=== PATIENT | female | born 1980 | race Caucasian/White ===

== ENCOUNTER 2016-09-07 09:00 | Emergency (ER) | payer OTHER ==
[2016-09-07] MEDS ORDERED: ONDANSETRON 4MG/2ML VIAL (J2405) As Ordered ONE (09:39)
[2016-09-07] MEDS ORDERED: hydrOXYzine 25 MG TAB As Ordered ONE (09:39)
[2016-09-07] MEDS ORDERED: methylPREDNISolone INJ 125 MG/2 ML VIAL (J2930) As Ordered ONE (09:39)
--- NOTE | 2016-09-07 12:47 | EDDOCDS ---
Physician Documentation [facility] Name: Kierra Belle Age: 36 yrs Sex: Female : 1980 Arrival Date: 09/07/2016 Time: 09:00 Bed 14 Private MD: Edy John [facility] Disposition: 09/07/16 12:36 Discharged to Home/Self Care. Impression: Allergic urticaria. - Condition is Stable. - Discharge Instructions: Allergies. - Prescriptions for Prednisone 20 mg Oral Tablet - take 3 tablet by ORAL route once daily for 5 days; 15 tablet. - Medication Reconciliation, Local Pharmacy Hours form. - Follow up: Edy John [facility]; When: Call to arrange an appointment; Reason: Continuance of care. - Problem is new. - Symptoms have improved. Historical: - Allergies: Benadryl; SHELLFISH; [place]; Ibuprofen; Peanuts; Latex; - Home Meds: 1. cyproheptadine 4 mg Oral tab daily 2. Depo-Provera 150 mg/mL IM syrg 1 mL every 3 mo - PMHx: Allergies, Seasonal; - PSHx: Partial thyroidectomy; Right ankle surgery; - Family history: Not pertinent. - Social history: Smoking status: Patient states was never smoker of tobacco. No barriers to communication noted, The patient speaks fluent Sinhala, Speaks appropriately for age. - : The pt / caregiver states he / she is not on anticoagulants. Home medication list is obtained from the patient. - Exposure Risk Screening:: None identified. 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 (165.10 cm); Pain 0/10; 10:53 BP 117 / 67 (auto/); kc3 10:54 Pulse 84 MON; Pulse Ox 98% ; kc3 12:45 BP 109 / 56; Pulse 98; Resp 18; Temp 98.8(O); Pulse Ox 97% on R/A; Pain 0/10; kc3 09:13 Body Mass Index 26.13 (71.21 kg, 165.10 cm) dem1 MDM: 09:09 Solu-MEDROL 125 mg IVP once ordered. fg 09:09 Ondansetron 4 mg IVP once ordered. fg 09:09 hydrOXYzine 25 mg PO once ordered. fg 09:53 Financial registration complete. lg 10:52 [facility] Payment Agreement was scanned into [employer] and attached to record. lg Administered Medications: 09:55 Drug: Solu-MEDROL 125 mg [Solu-Medrol 500 mg intravenous solution (125 mg)] Route: IVP; kc3 Site: right antecubital; :55 Drug: Ondansetron 4 mg [ondansetron HCl 2 mg/mL intravenous solution (2 mL)] Route: kc3 IVP; Site: right antecubital; :55 Drug: hydrOXYzine 25 mg [hydroxyzine HCl 25 mg tablet (1 tabs)] Route: PO; kc3 Signatures: Neha Chew Reg Reg lg Gill, Frances, MD MD Alicia Mckeon RN RN kc3 The chart was reviewed and I authenticate all verbal orders and agree with the evaluation and treatment provided.Attachments: 10:52 [facility] Payment Agreement lg MTDD
--- NOTE | 2016-09-07 12:47 | EDDOCDS ---
Nurse's Notes [facility] Name: Kierra Belle Age: 36 yrs Sex: Female : 1980 Arrival Date: 09/07/2016 Time: 09:00 Bed 14 Private MD: Edy John [facility] Diagnosis: Allergic urticaria Presentation: 09/07 09:08 Presenting complaint: EMS states: allergic reaction with hives to left arm and minor kc3 facial swelling with lip swelling. 09:16 Onset: The symptoms/episode began/occurred suddenly. The patient has a history of a kc3 previous allergic reaction. The previous reaction involved swelling. Anaphylaxis evaluation, the patient reports or I have noted the following symptoms which indicate a significant risk of anaphylaxis: no signs or symptoms of anaphylaxis were noted. Adult Sepsis Screening: The patient does not have new or worsening altered mentation. Patient's respiratory rate is less than 22. Systolic blood pressure is greater than 100. Patient has a qSOFA score of 0- Negative Sepsis Screen. Suicide/Homicide risk assessment- the patient denies having any suicidal and/or homicidal ideations and does not present with any other emotional, behavioral or mental health complaints. 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 Transition of care: patient was not received from another setting of care. 09:16 Acuity: TAYLOR Level 3 kc3 09:16 Method Of Arrival: Ambulance kc3 Triage Assessment: 09:20 General: Appears in no apparent distress, comfortable, Behavior is appropriate for age, kc3 cooperative. Pain: Denies pain. Pt Declines HIV testing. The patient is triaged at the bedside. See Assessment in Nurses Notes section of ED record. Neurological: Level of Consciousness is awake, alert, obeys commands, Oriented to person, place, time. Respiratory: Airway is patent Respiratory effort is even, unlabored, Respiratory pattern is regular, symmetrical, Reports no respiratory complaints. Derm: Skin is normal, Rash noted that is itchy, red, on left arm Swollen area noted on lips. Musculoskeletal: Circulation, motion, and sensation intact. 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 cyproheptadine 4 mg Oral tab daily 2. Depo-Provera 150 mg/mL IM syrg 1 mL every 3 mo - PMHx: Allergies, Seasonal; - PSHx: Partial thyroidectomy; Right ankle surgery; - Family history: Not pertinent. - Social history: Smoking status: Patient states was never smoker of tobacco. No barriers to communication noted, The patient speaks fluent Tongan, Speaks appropriately for age. - : The pt / caregiver states he / she is not on anticoagulants. Home medication list is obtained from the patient. - Exposure Risk Screening:: None identified. Screenin:22 Screening information is obtained from the patient. Fall risk: No risks identified. kc3 Assistance ADL's: requires no assistance with activities of daily living. Abuse/DV Screen: The patient / caregiver reports he/she is: not in a situation that causes fear, pain or injury. Nutritional screening: No deficits noted. Advance Directives: Currently, there is a health care proxy, Daniel Machado, brother. home support is adequate. Assessment: 10:30 General: Appears in no apparent distress, comfortable, Behavior is appropriate for age, kc3 cooperative. Pain: Denies pain. Respiratory: Airway is patent Respiratory effort is even, unlabored, Breath sounds are clear bilaterally. Derm: Rash noted that is red, urticaria, on left arm No change in pt symptoms since medication. Dr. Carreon notified. Swollen area noted on mouth. Musculoskeletal: Circulation, motion, and sensation intact. 11:19 Reassessment: Patient appears in no apparent distress at this time. Pt resting on kc3 stretcher and updated on plan of care. No change in pt symptoms at this time. Respirations even and unlabored. Will continue to monitor. . 12:00 Reassessment: Patient appears in no apparent distress at this time. Pt resting on kc3 stretcher with no distress noted. Family at bedside. Call weldon within reach. Will continue to monitor. . 12:43 General: Appears in no apparent distress, comfortable, Behavior is appropriate for age, kc3 cooperative. Pain: Denies pain. Neurological: No deficits noted. Respiratory: Airway is patent Respiratory effort is even, unlabored. Derm: Skin is normal, Urticaria noted to be smaller in size. Vital Signs: 09:13 BP 137 / 99; Pulse 98; Resp 18; Pulse Ox 99% on R/A; Weight 71.21 kg; Height 65 in. dem1 (165.10 cm); Pain 0/10; 10:53 BP 117 / 67 (auto/); kc3 10:54 Pulse 84 MON; Pulse Ox 98% ; kc3 12:45 BP 109 / 56; Pulse 98; Resp 18; Temp 98.8(O); Pulse Ox 97% on R/A; Pain 0/10; kc3 09:13 Body Mass Index 26.13 (71.21 kg, 165.10 cm) [facility] Vitals: 09:13 Log In Time N/A - ambulance arrival. [facility] ED Course: 09:01 Patient visited by Felicia Murray, Orthopaedic Physician Assistant. lbd 09:01 Kennan, [facility] is Private Physician. lbd 09:01 Patient moved to Waiting lbd 09:01 Patient moved to 14 lbd 09:02 Jazmyne Carreon MD is Attending Physician. fg 09:02 Patient visited by Jazmyne Carreon MD. fg 09:14 Patient visited by Alexy Washington. dem1 09:17 Triage Initiated kc3 09:22 Maintain field IV. Dressing intact. Site clean & dry. Gauge & site: 20G right AC. kc3 09:23 The patient / caregiver is instructed regarding the plan of care and ED course. kc3 09:31 Alicia Mckeon,RY is Primary Nurse. kc3 09:52 Patient visited by Alicia Mckeon RN. kc3 10:30 Patient visited by Alicia Mckeon,RY. kc3 10:51 Patient name changed from Kierra\S\\S\Belle\S\ to Kierra\S\Temekia\S\Belle. EDMS 10:52 [facility] Payment Agreement was scanned into [employer] and attached to record. lg 11:02 Patient visited by Ghazal Rao PCA. ct3 11:32 Patient visited by Alicia Mckeon,RY. kc3 12:03 Patient visited by Ghazal Rao PCA. ct3 12:35 [facility] fg 12:45 Discontinued IV lock intact, bleeding controlled, pressure dressing applied, No kc3 redness/swelling at site. No procedures done that require assistance. Administered Medications: 09:55 Drug: Solu-MEDROL 125 mg [Solu-Medrol 500 mg intravenous solution (125 mg)] Route: IVP; kc3 Site: right antecubital; 09:55 Drug: Ondansetron 4 mg [ondansetron HCl 2 mg/mL intravenous solution (2 mL)] Route: kc3 IVP; Site: right antecubital; 09:55 Drug: hydrOXYzine 25 mg [hydroxyzine HCl 25 mg tablet (1 tabs)] Route: PO; kc3 Order Results: There are currently no results for this order. Outcome: 12:36 Discharge ordered by Provider. fg 12:45 Discharge Assessment: Patient awake, alert and oriented x 3. No cognitive and/or kc3 functional deficits noted. Patient verbalized understanding of disposition instructions. patient administered narcotics - no. The following High Risk Discharge criteria are identified: None. Discharged to home ambulatory. Condition: stable. Discharge instructions given to patient, Instructed on discharge instructions, follow up and referral plans. medication usage, Demonstrated understanding of instructions, medications, Pt was receptive of discharge instructions/ teaching. Prescriptions given X 1. No special radiology studies were completed. Property :Personal belongings accompany Pt. 12:46 Patient left the ED. kc3 Signatures: Dispatcher [employer] EDMS Felicia Murray, Orthopaedic Physician Assistant Unit lbd Neha Chew, Reg Reg lg Maira, Ghazal, CORSETIER CORSETIER ct3 Alexy Washington1 Jazmyne Carreon MD MD fg Crane, KelsiRN RN kc3 MTDD
--- NOTE | 2016-09-09 13:47 | EDDOCDS ---
Physician Documentation [facility] Name: Kierra Belle Age: 36 yrs Sex: Female : 1980 Arrival Date: 09/07/2016 Time: 09:00 Bed 14 Private MD: Edy John [facility] Disposition: 09/07/16 12:36 Discharged to Home/Self Care. Impression: Allergic urticaria. - Condition is Stable. - Discharge Instructions: Allergies. - Prescriptions for Prednisone 20 mg Oral Tablet - take 3 tablet by ORAL route once daily for 5 days; 15 tablet. - Medication Reconciliation, Local Pharmacy Hours form. - Follow up: Edy John [facility]; When: Call to arrange an appointment; Reason: Continuance of care. - Problem is new. - Symptoms have improved. Historical: - Allergies: Benadryl; SHELLFISH; [place]; Ibuprofen; Peanuts; Latex; - Home Meds: 1. cyproheptadine 4 mg Oral tab daily 2. Depo-Provera 150 mg/mL IM syrg 1 mL every 3 mo - PMHx: Allergies, Seasonal; - PSHx: Partial thyroidectomy; Right ankle surgery; - Family history: Not pertinent. - Social history: Smoking status: Patient states was never smoker of tobacco. No barriers to communication noted, The patient speaks fluent Greenlandic, Speaks appropriately for age. - : The pt / caregiver states he / she is not on anticoagulants. Home medication list is obtained from the patient. - Exposure Risk Screening:: None identified. 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 (165.10 cm); Pain 0/10; 10:53 BP 117 / 67 (auto/); kc3 10:54 Pulse 84 MON; Pulse Ox 98% ; kc3 12:45 BP 109 / 56; Pulse 98; Resp 18; Temp 98.8(O); Pulse Ox 97% on R/A; Pain 0/10; kc3 09:13 Body Mass Index 26.13 (71.21 kg, 165.10 cm) dem1 MDM: 09:09 Solu-MEDROL 125 mg IVP once ordered. fg 09:09 Ondansetron 4 mg IVP once ordered. fg 09:09 hydrOXYzine 25 mg PO once ordered. fg 09:53 Financial registration complete. lg 10:52 [facility] Payment Agreement was scanned into [employer] and attached to record. lg 14:53 T-Sheet-- Draft Copy was scanned into [employer] and attached to record. gb Administered Medications: :55 Drug: Solu-MEDROL 125 mg [Solu-Medrol 500 mg intravenous solution (125 mg)] Route: IVP; kc3 Site: right antecubital; :55 Drug: Ondansetron 4 mg [ondansetron HCl 2 mg/mL intravenous solution (2 mL)] Route: kc3 IVP; Site: right antecubital; :55 Drug: hydrOXYzine 25 mg [hydroxyzine HCl 25 mg tablet (1 tabs)] Route: PO; kc3 Signatures: Kenyetta Huitron, Reg Reg gb Neha Chew, Reg Reg lg Jazmyne Carreon MD MD fg Crane, Kelsi, RN RN kc3 The chart was reviewed and I authenticate all verbal orders and agree with the evaluation and treatment provided.Attachments: 10:52 [facility] Payment Agreement lg 14:53 T-Sheet-- Draft Copy gb Chart Complete MTDD
--- NOTE | 2016-09-09 13:47 | EDDOCDS ---
Nurse's Notes [facility] Name: Kierra Belle Age: 36 yrs Sex: Female : 1980 Arrival Date: 09/07/2016 Time: 09:00 Bed 14 Private MD: Edy John [facility] Diagnosis: Allergic urticaria Presentation: 09/07 09:08 Presenting complaint: EMS states: allergic reaction with hives to left arm and minor kc3 facial swelling with lip swelling. 09:16 Onset: The symptoms/episode began/occurred suddenly. The patient has a history of a kc3 previous allergic reaction. The previous reaction involved swelling. Anaphylaxis evaluation, the patient reports or I have noted the following symptoms which indicate a significant risk of anaphylaxis: no signs or symptoms of anaphylaxis were noted. Adult Sepsis Screening: The patient does not have new or worsening altered mentation. Patient's respiratory rate is less than 22. Systolic blood pressure is greater than 100. Patient has a qSOFA score of 0- Negative Sepsis Screen. Suicide/Homicide risk assessment- the patient denies having any suicidal and/or homicidal ideations and does not present with any other emotional, behavioral or mental health complaints. 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 Transition of care: patient was not received from another setting of care. 09:16 Acuity: TAYLOR Level 3 kc3 09:16 Method Of Arrival: Ambulance kc3 Triage Assessment: 09:20 General: Appears in no apparent distress, comfortable, Behavior is appropriate for age, kc3 cooperative. Pain: Denies pain. Pt Declines HIV testing. The patient is triaged at the bedside. See Assessment in Nurses Notes section of ED record. Neurological: Level of Consciousness is awake, alert, obeys commands, Oriented to person, place, time. Respiratory: Airway is patent Respiratory effort is even, unlabored, Respiratory pattern is regular, symmetrical, Reports no respiratory complaints. Derm: Skin is normal, Rash noted that is itchy, red, on left arm Swollen area noted on lips. Musculoskeletal: Circulation, motion, and sensation intact. 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 cyproheptadine 4 mg Oral tab daily 2. Depo-Provera 150 mg/mL IM syrg 1 mL every 3 mo - PMHx: Allergies, Seasonal; - PSHx: Partial thyroidectomy; Right ankle surgery; - Family history: Not pertinent. - Social history: Smoking status: Patient states was never smoker of tobacco. No barriers to communication noted, The patient speaks fluent Indian, Speaks appropriately for age. - : The pt / caregiver states he / she is not on anticoagulants. Home medication list is obtained from the patient. - Exposure Risk Screening:: None identified. Screenin:22 Screening information is obtained from the patient. Fall risk: No risks identified. kc3 Assistance ADL's: requires no assistance with activities of daily living. Abuse/DV Screen: The patient / caregiver reports he/she is: not in a situation that causes fear, pain or injury. Nutritional screening: No deficits noted. Advance Directives: Currently, there is a health care proxy, Daniel Machado, brother. home support is adequate. Assessment: 10:30 General: Appears in no apparent distress, comfortable, Behavior is appropriate for age, kc3 cooperative. Pain: Denies pain. Respiratory: Airway is patent Respiratory effort is even, unlabored, Breath sounds are clear bilaterally. Derm: Rash noted that is red, urticaria, on left arm No change in pt symptoms since medication. Dr. Carreon notified. Swollen area noted on mouth. Musculoskeletal: Circulation, motion, and sensation intact. 11:19 Reassessment: Patient appears in no apparent distress at this time. Pt resting on kc3 stretcher and updated on plan of care. No change in pt symptoms at this time. Respirations even and unlabored. Will continue to monitor. . 12:00 Reassessment: Patient appears in no apparent distress at this time. Pt resting on kc3 stretcher with no distress noted. Family at bedside. Call weldon within reach. Will continue to monitor. . 12:43 General: Appears in no apparent distress, comfortable, Behavior is appropriate for age, kc3 cooperative. Pain: Denies pain. Neurological: No deficits noted. Respiratory: Airway is patent Respiratory effort is even, unlabored. Derm: Skin is normal, Urticaria noted to be smaller in size. Vital Signs: 09:13 BP 137 / 99; Pulse 98; Resp 18; Pulse Ox 99% on R/A; Weight 71.21 kg; Height 65 in. dem1 (165.10 cm); Pain 0/10; 10:53 BP 117 / 67 (auto/); kc3 10:54 Pulse 84 MON; Pulse Ox 98% ; kc3 12:45 BP 109 / 56; Pulse 98; Resp 18; Temp 98.8(O); Pulse Ox 97% on R/A; Pain 0/10; kc3 09:13 Body Mass Index 26.13 (71.21 kg, 165.10 cm) [facility] Vitals: 09:13 Log In Time N/A - ambulance arrival. [facility] ED Course: 09:01 Patient visited by Felicia Murray, Veterans' Counselor. lbd 09:01 Bearden, [facility] is Private Physician. lbd 09:01 Patient moved to Waiting lbd 09:01 Patient moved to 14 lbd 09:02 Jazmyne Carreon MD is Attending Physician. fg 09:02 Patient visited by Jazmyne Carreon MD. fg 09:14 Patient visited by Alexy Washington. dem1 09:17 Triage Initiated kc3 09:22 Maintain field IV. Dressing intact. Site clean & dry. Gauge & site: 20G right AC. kc3 09:23 The patient / caregiver is instructed regarding the plan of care and ED course. kc3 09:31 Alicia Mckeon,RY is Primary Nurse. kc3 09:52 Patient visited by Alicia Mckeon,RY. kc3 10:30 Patient visited by Alicia Mckeon,RY. kc3 10:51 Patient name changed from Kierra\S\\S\Belle\S\ to Kierra\S\Temekia\S\Belle. EDMS 10:52 [facility] Payment Agreement was scanned into [employer] and attached to record. lg 11:02 Patient visited by Ghazal Rao PCA. ct3 11:32 Patient visited by Alicia Mckeon,RY. kc3 12:03 Patient visited by Ghazal Rao PCA. ct3 12:35 Bearden, [facility] is Referral Physician. fg 12:45 Discontinued IV lock intact, bleeding controlled, pressure dressing applied, No kc3 redness/swelling at site. No procedures done that require assistance. 14:53 T-Sheet-- Draft Copy was scanned into [employer] and attached to record. gb Administered Medications: 09:55 Drug: Solu-MEDROL 125 mg [Solu-Medrol 500 mg intravenous solution (125 mg)] Route: IVP; kc3 Site: right antecubital; 09:55 Drug: Ondansetron 4 mg [ondansetron HCl 2 mg/mL intravenous solution (2 mL)] Route: kc3 IVP; Site: right antecubital; 09:55 Drug: hydrOXYzine 25 mg [hydroxyzine HCl 25 mg tablet (1 tabs)] Route: PO; kc3 Order Results: There are currently no results for this order. Outcome: 12:36 Discharge ordered by Provider. fg 12:45 Discharge Assessment: Patient awake, alert and oriented x 3. No cognitive and/or kc3 functional deficits noted. Patient verbalized understanding of disposition instructions. patient administered narcotics - no. The following High Risk Discharge criteria are identified: None. Discharged to home ambulatory. Condition: stable. Discharge instructions given to patient, Instructed on discharge instructions, follow up and referral plans. medication usage, Demonstrated understanding of instructions, medications, Pt was receptive of discharge instructions/ teaching. Prescriptions given X 1. No special radiology studies were completed. Property :Personal belongings accompany Pt. 12:46 Patient left the ED. kc3 Signatures: Dispatcher [employer] EDMS Felicia Murray, Veterans' Counselor Unit lbd Kenyetta Huitron, Reg Reg gb Neha Chew, Reg Reg lg Ghazal Rao, MECHANICAL COMMISSIONING ENGINEER MECHANICAL COMMISSIONING ENGINEER ct3 Alexy Washington dem1 Jazmyne Carreon MD MD fg Crane, Kelsi,RY RN kc3 Chart Complete MTDD
--- NOTE | 2016-09-09 13:47 | EDDOCDS ---
Physician Documentation [facility] Name: Kierra Belle Age: 36 yrs Sex: Female : 1980 Arrival Date: 09/07/2016 Time: 09:00 Bed 14 Private MD: Edy John [facility] Disposition: 09/07/16 12:36 Discharged to Home/Self Care. Impression: Allergic urticaria. - Condition is Stable. - Discharge Instructions: Allergies. - Prescriptions for Prednisone 20 mg Oral Tablet - take 3 tablet by ORAL route once daily for 5 days; 15 tablet. - Medication Reconciliation, Local Pharmacy Hours form. - Follow up: Edy John [facility]; When: Call to arrange an appointment; Reason: Continuance of care. - Problem is new. - Symptoms have improved. Historical: - Allergies: Benadryl; SHELLFISH; [place]; Ibuprofen; Peanuts; Latex; - Home Meds: 1. cyproheptadine 4 mg Oral tab daily 2. Depo-Provera 150 mg/mL IM syrg 1 mL every 3 mo - PMHx: Allergies, Seasonal; - PSHx: Partial thyroidectomy; Right ankle surgery; - Family history: Not pertinent. - Social history: Smoking status: Patient states was never smoker of tobacco. No barriers to communication noted, The patient speaks fluent Indonesian, Speaks appropriately for age. - : The pt / caregiver states he / she is not on anticoagulants. Home medication list is obtained from the patient. - Exposure Risk Screening:: None identified. 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 (165.10 cm); Pain 0/10; 10:53 BP 117 / 67 (auto/); kc3 10:54 Pulse 84 MON; Pulse Ox 98% ; kc3 12:45 BP 109 / 56; Pulse 98; Resp 18; Temp 98.8(O); Pulse Ox 97% on R/A; Pain 0/10; kc3 09:13 Body Mass Index 26.13 (71.21 kg, 165.10 cm) dem1 MDM: 09:09 Solu-MEDROL 125 mg IVP once ordered. fg 09:09 Ondansetron 4 mg IVP once ordered. fg 09:09 hydrOXYzine 25 mg PO once ordered. fg 09:53 Financial registration complete. lg 10:52 [facility] Payment Agreement was scanned into [employer] and attached to record. lg 14:53 T-Sheet-- Draft Copy was scanned into [employer] and attached to record. gb Administered Medications: :55 Drug: Solu-MEDROL 125 mg [Solu-Medrol 500 mg intravenous solution (125 mg)] Route: IVP; kc3 Site: right antecubital; :55 Drug: Ondansetron 4 mg [ondansetron HCl 2 mg/mL intravenous solution (2 mL)] Route: kc3 IVP; Site: right antecubital; :55 Drug: hydrOXYzine 25 mg [hydroxyzine HCl 25 mg tablet (1 tabs)] Route: PO; kc3 Signatures: Kenyetta Huitron, Reg Reg gb Neha Chew, Reg Reg lg Jazmyne Carreon MD MD fg Crane, Kelsi, RN RN kc3 The chart was reviewed and I authenticate all verbal orders and agree with the evaluation and treatment provided.Attachments: 10:52 [facility] Payment Agreement lg 14:53 T-Sheet-- Draft Copy gb Chart Complete MTDD
== END 2016-09-07 12:46 | disposition home or self-care (01) ==
LOC: M ED 09:00
DX: L50.9 Urticaria, unspecified (principal); J30.2 Other seasonal allergic rhinitis; Z79.899 Other long term (current) drug therapy; Z88.6 Allergy status to analgesic agent; Z88.8 Allergy status to other drugs, medicaments and biological substances; Z91.018 Allergy to other foods; Z91.010 Allergy to peanuts; Z91.013 Allergy to seafood
CPT/HCPCS: 96374; 96375; 99283; J2405; J2930